=== PATIENT | male | born 1975 | race Caucasian/White ===

== ENCOUNTER 2019-10-05 06:38 | Outpatient (CLI) | payer OTHER ==
[2019-10-05 18:04] LABS: Anion Gap 10 mmol/L (10-20); BUN (Urea Nitrogen) 16 mg/dL (8.9-20.6); Calc. Creatinine Clearance 0 mL/min (70-130); Calcium 9.3 mg/dL (7.8-10.44); Carbon Dioxide 28 mmol/L (22-29); Chloride 102 mmol/L (98-107); Estimated GFR-MDRD 58; Glucose 94 mg/dL (70-105); Potassium 4.3 mmol/L (3.5-5.1); Sodium 136 mmol/L (136-145)
[2019-10-05 18:28] LABS: #Eosinphils 0.2 thou/uL (0.0-0.7); #Lymphocytes 2.1 thou/uL (1.20-3.40); #Monocytes 0.7 thou/uL (0.11-0.59); #Neutrophils 3.6 thou/uL (1.40-6.50); %Basophils 0.5 % (0.0-1.0); %Eosinophils 2.7 % (0.0-10.0); %Lymphocytes 31.9 % (21.0-51.0); %Neutrophils 54.9 % (42.0-75.0); Hemoglobin 16.2 g/dL (14.0-18.0); Mean Corpuscular HGB CONC 35.5 g/dL (32.0-36.0); Mean Corpuscular Hemoglobin 34.9 pg (27.0-31.0); Mean Corpuscular Volume 98.4 fL (78.0-98.0); Mean Platelet Volume 8.8 fL (7.4-10.4); Platelet Count 119 thou/uL (130-400); Platelet Morphology Comment Appears Decreased; RBC Distribution Width 10.5 % (11.5-14.5); RBC Morphology Normal; Red Blood Cell (RBC) Count 4.64 mill/uL (4.70-6.10); White Blood Cell (WBC) Count 6.5 thou/uL (4.8-10.8)
[2019-10-06 12:13] LABS: SARS-CoV-2 MS2 Positive; SARS-CoV-2 N Gene Negative; SARS-CoV-2 S Gene Negative; SARS-CoV-2 orf1ab Negative
== END 2019-10-05 06:39 | disposition home or self-care (01) ==
LOC: LABBT 06:38
PROVIDERS: ATTEND Orthopaedic Surgery
DX: Z01.818 Encounter for other preprocedural examination (principal); Z11.59 Encounter for screening for other viral diseases; S83.207A Unspecified tear of unspecified meniscus, current injury, left knee, initial encounter
CPT/HCPCS: 80048; 85025; 87635; 93005; 93010; U0003

== ENCOUNTER 2019-10-10 08:59 | Day surgery (SDC) | payer OTHER ==
[2019-10-04 10:36] VITALS: BMI 29.7
[2019-10-10] MEDS ORDERED: PROPOFOL 20 ML ONE (10:24)
[2019-10-10] MEDS ORDERED: Lidocaine 1% PF 5 ML VIAL ONE (10:57)
[2019-10-10] MEDS ORDERED: Dexamethasone 20 MG/5 ML VIAL ONE (10:57)
[2019-10-10] MEDS ORDERED: Ketorolac Tromethamine 30 MG/ML VIAL ONE (10:57)
[2019-10-10] MEDS ORDERED: Ondansetron PF 4 MG/2 ML Vial ONE (10:57)
[2019-10-10] MEDS ORDERED: PROPOFOL 200 MG/20 ML VIAL ONE (10:57)
[2019-10-10] MEDS ORDERED: Bupivacaine PF 0.5% 30 ML VIAL ONE (10:57)
[2019-10-10] MEDS ORDERED: Lidocaine 2% w/Epinephrine 1:200K 20 ML VIAL ONE (10:57)
[2019-10-10] MEDS ORDERED: Fentanyl 100 MCG/2 ML VIAL ONE (11:48)
--- NOTE | 2019-10-10 13:18 | OP ---
DATE OF PROCEDURE: 10/10/2019 PREOPERATIVE DIAGNOSES: Left knee posterior horn medial meniscal tear. POSTOPERATIVE DIAGNOSES: Left knee posterior horn medial meniscal tear. PROCEDURES PERFORMED: Left knee arthroscopy, partial medial meniscectomy. BELT WEAVER: None. ESTIMATED BLOOD LOSS: Minimal. COMPLICATIONS: None. ANESTHESIA: The patient had a general anesthetic as well as a local knee block. DISPOSITION: He did go to recovery room in stable condition. INDICATIONS: This is a 44-year-old male, who comes in complaining of catching pain and swelling of the knee. MRI scan showed him to have a posterior horn and medial meniscus tear and he opted to have surgery at this time. DESCRIPTION OF PROCEDURE: After all appropriate consent forms were explained and signed, he was taken back to the operating room and at this time was given general anesthetic. Once the level of anesthesia was appropriate, tourniquet was placed on the left thigh. Leg was placed in arthroscopic leg ac. The limb was prepped and draped in standard surgical fashion. Limb was exsanguinated and tourniquet taken to 300 mmHg. Inferolateral portal was established. Scope was placed into the knee joint. Needle localization technique was then used to make a medial working portal. Diagnostic arthroscopy commenced in the notch. ACL and PCL were probed , found to be intact. Medial compartment was evaluated. There was some early grade 2 damage to a small area of the medial tibial plateau, right where there was an undersurface flap tear of the posterior horn and body of medial meniscus. No treatment was needed. This was just documented. This flap tear was taken down to a stable base using a biter and a shaver. The tear continued posteriorly to the posterior root and again the biter and shaver were used to remove the loose meniscal tissue. Remaining root was intact and in normal anatomic position. Remaining portion of the tibia and the femur were in good condition. Laterally, it was evaluated and found to be normal. The gutters were swept through, no loose bodies were noted. Patellofemoral joint showed the patella to be in good condition. There was a central area of a large fissure in the trochlea. There was a small amount of loose chondral tissue, which was removed, but for the most part it was just a large fissure. At this time, the scope was removed, knee was drained, and the portals were closed with simple nylon stitches. Bulky sterile dressing was applied. Tourniquet was let down. Toes pinked up nicely. The patient was awakened, taken to the recovery room in stable condition. All counts were correct at the end of the case and he did receive preoperative IV antibiotics. Job ID: [id number] [id number]
== END 2019-10-10 14:40 | disposition home or self-care (01) ==
LOC: SDC 08:59
PROVIDERS: ATTEND Orthopaedic Surgery
PROC: 0SBD4ZZ Excision of Left Knee Joint, Percutaneous Endoscopic Approach (ICD-10-PCS; principal; 2019-10-10)
DX: M23.222 Derangement of posterior horn of medial meniscus due to old tear or injury, left knee (principal); F17.200 Nicotine dependence, unspecified, uncomplicated
CPT/HCPCS: J0690; J1100; J1885; J2405; J2704; J3010; S0020